=== PATIENT | male | born 1985 | race Caucasian/White ===

== ENCOUNTER 2017-03-02 11:32 | Emergency (ER) | payer SELFPAY ==
[2017-03-02] MEDS ORDERED: HYDROmorphone 1 MG/ML Syringe IM ONE (11:52)
--- NOTE | 2017-03-02 12:00 | EDM.PDOC ---
ED HPI GENERAL MEDICAL PROBLEM - General Chief Complaint: ENT Problem Stated Complaint: TOOTH PAIN Time Seen by Provider: 03/02/17 11:44 Source of Information: Reports: Patient History Limitations: Reports: No Limitations - History of Present Illness INITIAL COMMENTS - FREE TEXT/NARRATIVE: The patient presents with right lower jaw dental pain. Last week he had some pain but it went away. Today the pain came back and it is severe. It is the 3rd molar in the right lower jaw. He has no fever or chills. His family all have bad teeth. He is from [place] and he is planning on going back to an oral surgeon when they get home. Onset: Gradual Duration: Day(s): Location: Reports: Face (Dental pain) Quality: Reports: Sharp Severity: Severe Improves with: Reports: None Worsens with: Reports: None Associated Symptoms: Reports: No Other Symptoms Right Tooth/Teeth Pain Score (Numeric/FACES): 10 - Related Data Allergies Allergy/AdvReac Type Severity Reaction Status Date / Time clindamycin Allergy Nausea Verified 09/20/16 08:33 [employer] Penicillins Allergy Rash Verified 09/20/16 08:33 [employer] Home Meds: Home Meds Amoxicillin 1,000 mg PO BID #40 tab 03/02/17 [Rx] oxyCODONE HCl/Acetaminophen [Percocet 5-325 mg Tablet] 1 - 2 each PO Q6HR PRN # 20 tablet 03/02/17 [Rx] Past Medical History - Past Health History Medical/Surgical History: Denies Medical/Surgical History - Infectious Disease History Infectious Disease History: Reports: None - Past Surgical History HEENT Surgical History: Reports: Other (See Below) Other HEENT Surgeries/Procedures: dental issues Social & Family History - Family History Family Medical History: Noncontributory - Tobacco Use Smoking Status *Q: Current Every Day Smoker Years of Tobacco use: 16 Packs/Tins Daily: 0.5 - Caffeine Use Caffeine Use: Reports: Coffee, Tea - Recreational Drug Use Recreational Drug Use: No ED ROS ENT - Review of Systems Review Of Systems: See Below Constitutional: Reports: No Symptoms HEENT: Reports: Dental Pain Respiratory: Reports: No Symptoms Cardiovascular: Reports: No Symptoms Endocrine: Reports: No Symptoms GI/Abdominal: Reports: No Symptoms : Reports: No Symptoms Musculoskeletal: Reports: No Symptoms Skin: Reports: No Symptoms ED EXAM, ENT - Physical Exam Exam: See Below Exam Limited By: No Limitations General Appearance: Alert, No Apparent Distress Ears: Normal External Exam Nose: Normal Inspection Mouth/Throat: Dental Pain, Other (Pain upon palpation to the right lower 3rd molar with erythema and edema.) Head: Atraumatic, Normocephalic Neck: Normal Inspection Course - Vital Signs Last Recorded V/S: Last Vital Signs Temp 97.5 F 03/02/17 11:40 Pulse 68 03/02/17 11:40 Resp 20 03/02/17 11:40 BP 127/90 03/02/17 11:40 Pulse Ox 99 03/02/17 11:40 - Orders/Labs/Meds Meds: Medications Discontinued Medications Generic Name Dose Route Start Last Admin Trade Name Freq PRN Reason Stop Dose Admin Hydromorphone HCl 1 mg 03/02/17 11:52 Dilaudid IM 03/02/17 11:53 ONETIME ONE - Re-Assessments/Exams Free Text/Narrative Re-Assessment/Exam: 03/02/17 12:00 I ordered dilaudid 1mg IM. 03/02/17 12:06 The patient is allergic to the two antibiotics given for dental pain. He says he can take amoxicillin and he has before for dental pain. Departure - Departure Time of Disposition: 00:05 Disposition: Home, Self-Care 01 Condition: good Clinical Impression: Dental abscess, Dental caries, Pain, dental - Discharge Information Prescriptions: oxyCODONE HCl/Acetaminophen [Percocet 5-325 mg Tablet] 1 - 2 each PO Q6HR PRN # 20 tablet PRN Reason: Pain Amoxicillin 1,000 mg PO BID #40 tab Forms: ED Department Discharge, Return to Work/School Form Additional Instructions: Take the amoxicillin 2 pills 2 times per day. Please return if you have any allergic symptoms like rash, shortness of breath, facial swelling or throat swelling. Take the percocet as needed for pain. Follow up with your dentist when you get home.
[2017-03-02 12:30] VITALS: BP 131/93
== END 2017-03-02 12:30 | disposition home or self-care (01) ==
LOC: JD.ED 11:32
DX: K04.7 Periapical abscess without sinus (principal); K02.9 Dental caries, unspecified; F17.210 Nicotine dependence, cigarettes, uncomplicated; Z88.0 Allergy status to penicillin; Z88.1 Allergy status to other antibiotic agents
CPT/HCPCS: 96372; 99283; J1170